=== PATIENT | male | born 1950 | race Caucasian/White ===

== ENCOUNTER 2019-11-01 10:46 | Outpatient (CLI) | payer MEDICARE ==
--- NOTE | 2019-11-01 11:31 | RAD ---
MODIFIED BARIUM SWALLOW IN PRESENCE OF SPEECH THERAPIST: HISTORY: Dysphagia, feeding difficulties FINDINGS: No laryngeal penetration or aspiration is seen. No persistent pooling of contrast is seen in the valleculae or piriform sinuses. There is mild residu e in the piriform sinuses which clears with subsequent swallows. Please see recommendations of the speech therapist for further management.
== END 2019-11-01 10:47 | disposition home or self-care (01) ==
LOC: RAD 10:46
PROVIDERS: ATTEND Internal Medicine
DX: R13.10 Dysphagia, unspecified (principal)
CPT/HCPCS: 74230

== ENCOUNTER 2022-02-07 15:58 | Outpatient (CLI) | payer MEDICARE | END 2022-02-07 15:59 | disposition home or self-care (01) | LOC: SCSRAD 15:58 | PROVIDERS: ATTEND Family Medicine | DX: M25.551 Pain in right hip (principal); M25.552 Pain in left hip; M47.816 Spondylosis without myelopathy or radiculopathy, lumbar region; M16.12 Unilateral primary osteoarthritis, left hip; M47.818 Spondylosis without myelopathy or radiculopathy, sacral and sacrococcygeal region ==

== ENCOUNTER 2023-08-20 09:11 | Outpatient (CLI) | payer MEDICARE | END 2023-08-20 09:12 | disposition home or self-care (01) | LOC: BICRAD 09:11 | PROVIDERS: ATTEND Urology | DX: N20.0 Calculus of kidney (principal) | CPT/HCPCS: 74018 ==